=== PATIENT | male | born 1980 | race Caucasian/White ===

== ENCOUNTER → 2021-07-26 | Outpatient (CLI) | payer BC ==
--- NOTE | 2021-07-26 15:12 | RAD ---
XR SHOULDER_RIGHT 2+ VIEWS DATE: 07/26/2021 2:10 PM INDICATION: RIGHT SHOULDER PAIN COMPARISON: None. FINDINGS: Bones: There is no evidence of acute fracture or dislocation. Joints: The joint spaces are normal. The acromiohumeral distance is not narrowed. Miscellaneous: No abnormal soft tissue calcifications in the shoulder. IMPRESSION: Normal exam Electronically signed by: Bud Pretty MD (07/26/2021 3:09 PM) AUDREY
== END ==
LOC: RAD 14:05
PROVIDERS: ATTEND Physician Assistant
DX: M25.511 Pain in right shoulder (principal)
CPT/HCPCS: 73030